=== PATIENT | male | born 1965 | race Caucasian/White ===

== ENCOUNTER 2019-03-25 12:30 | Emergency (ER) | payer SELFPAY ==
[~2019-03-25] VITALS: Ht 172.7 cm; Wt 74.8 kg
--- NOTE | 2019-03-25 12:50 | NUR ---
BAYRON ZHONG AT BEDSIDE FOR MSE.
[2019-03-25] MEDS: IV NORMAL SALINE 1000 ML BAG IV ONE (13:01)
[2019-03-25 13:14] LABS: CREATININE 1.1 mg/dL (0.6-1.3); POTASSIUM 4.1 mmol/L (3.5-5.1)
[2019-03-25 13:16] LABS: BASOPHILS % (AUTO) 0.3 % (0.0-2.0); EOSINOPHILS % (AUTO) 0.1 % (0.0-7.0); HEMOGLOBIN 14.3 g/dL (12.5-16.3); LYMPHOCYTES # (AUTO) 0.7 K/uL (20.0-40.0); LYMPHOCYTES % (AUTO) 6.3 % (20.5-51.5); MEAN CORPUSCULAR HEMOGLOBIN 31.1 uug (23.8-33.4); MEAN CORPUSCULAR HGB CONC 34 g/dL (32.5-36.3); MEAN CORPUSCULAR VOLUME 91.5 fL (73.0-96.2); MONOCYTES # (AUTO) 0.9 K/uL (2.0-10.0); MONOCYTES % (AUTO) 7.8 % (0.0-11.0); NEUTROPHILS # (AUTO) 9.4 K/uL (1.8-8.9); NEUTROPHILS % (AUTO) 85.5 % (38.5-71.5); PLATELET COUNT (AUTO) 294 K/uL (152-348); RED BLOOD CELL COUNT(AUTO) 4.59 MIL/uL (4.06-5.63)
[2019-03-25 13:20] LABS: BILIRUBIN,DIRECT 0.2 mg/dL (0.0-0.2); TOTAL PROTEIN, SERUM 7.8 g/dL (6.4-8.2)
[2019-03-25] MEDS ORDERED: IOHEXOL 300MG/ML 100 ML INFUS..BTL ONE (13:29)
[2019-03-25] MEDS ORDERED: IV NORMAL SALINE 250 ML IV ONE (13:29)
[2019-03-25] MEDS ORDERED: SWABABLE VALVE TRANSFER SET EA MC ONE (13:29)
[2019-03-25 16:00] VITALS: BP 116/82
--- NOTE | 2019-03-25 16:00 | NUR ---
Patient discharged to home in stable conditon. Written and verbal after care instructions given. Patient verbalizes understanding of instructions. ALL BELONGINGS W/ PT. PT SELF-AMBULATED W/O DIFFICULTY. 18G IV ACCESS IN LAC REMOVED PRIOR TO D/C - INNER CANNULA INTACT.
== END 2019-03-25 16:07 | disposition home or self-care (01) ==
LOC: ER 12:30
DX: K52.9 Noninfective gastroenteritis and colitis, unspecified (principal); R91.8 Other nonspecific abnormal finding of lung field
CPT/HCPCS: 36415; 74177; 80048; 80076; 83690; 85025; 86625; 87015; 87046; 87427; 87493; 87899; 89055; 96360; 99284; Q9967; A4663; J7030; J7050

== ENCOUNTER 2020-12-03 15:45 | Emergency (ER) | payer MEDICAID, OTHER ==
[~2020-12-03] VITALS: Ht 188 cm; Wt 79.4 kg
[2020-12-03] MEDS ORDERED: LIDOCAINE HCL 1% 20 ML VIAL IJ ONE (17:15)
[2020-12-03] MEDS ORDERED: LIDOCAINE HCL 1% 20 ML VIAL ONE (17:21)
--- NOTE | 2020-12-03 17:28 | NUR ---
PT WAS EVALUATED BY DR DESOUZA. I&D PROCEDURE WAS PERFORMED BY DR DESOUZA ON PT's LEFT INDEX FINGER. PT TOLERATED TO PROCEDURE WITHOUT COMPLICATIONS. PT WAS D/C'd TO HOME. D/C INSTRUCTIONS GIVEN TO THE PT BY DR DESOUZA.
[2020-12-03] MEDS ORDERED: HYDR-3972 PO (17:42)
[2020-12-03] MEDS ORDERED: AMOXICILLIN-CLAVUL 875-125MG TABLET PO ONE (17:45)
[2020-12-03] MEDS ORDERED: AMOX-430 PO (17:45)
[2020-12-03 17:56] VITALS: BP 132/79
[2020-12-03] MEDS ORDERED: AMOXICILLIN-CLAVUL 875-125MG TABLET ONE (17:59)
== END 2020-12-03 17:56 | disposition home or self-care (01) ==
LOC: ER 15:45
DX: L03.012 Cellulitis of left finger (principal); S61.23 Puncture wound without foreign body of finger without damage to nail; X58.XXXS Exposure to other specified factors, sequela
CPT/HCPCS: 26011; 99284; J3490; A4217; A4663

== ENCOUNTER 2020-12-10 13:27 | Emergency (ER) | payer OTHER ==
[~2020-12-10] VITALS: Ht 188 cm; Wt 81.6 kg
[~2020-12-10 13:27] MED LIST: AMOX-430 PO; HYDR-3972 PO
[2020-12-10] MEDS ORDERED: SULF1TAB48 PO (14:07)
[2020-12-10] MEDS ORDERED: SULFAMETH/TRIMETH 800/160 MG TABLET PO ONE (14:15)
[2020-12-10] MEDS ORDERED: SULFAMETH/TRIMETH 800/160 MG TABLET ONE (14:25)
--- NOTE | 2020-12-10 14:28 | NUR ---
Gave pt RX and d/c instructions, pt verbalized understanding.
== END 2020-12-10 17:40 | disposition home or self-care (01) ==
LOC: ER 13:29
DX: L03.012 Cellulitis of left finger (principal); Z72.0 Tobacco use
CPT/HCPCS: A4663

== ENCOUNTER 2022-09-04 10:35 | Emergency (ER) | payer OTHER ==
[~2022-09-04] VITALS: Ht 188 cm; Wt 79.4 kg
[~2022-09-04 10:35] MED LIST changes: +SULF1TAB48 PO
--- NOTE | 2022-09-04 11:03 | NUR ---
Pt seen by . Safety measures in place. Will continue to monitor.
--- NOTE | 2022-09-04 11:16 | NUR ---
Patient discharged to home in stable condition. Written and verbal after care instructions given. Patient verbalizes understanding of instructions. Stressed follow up or return to ER for worsening s/s.
[2022-09-04 11:17] VITALS: BP 131/82
== END 2022-09-04 11:19 | disposition home or self-care (01) ==
LOC: ER 10:35
DX: K40.90 Unilateral inguinal hernia, without obstruction or gangrene, not specified as recurrent (principal); Z90.49 Acquired absence of other specified parts of digestive tract; Z79.2 Long term (current) use of antibiotics; Z79.899 Other long term (current) drug therapy
CPT/HCPCS: A4663

== ENCOUNTER 2024-01-26 03:17 | Emergency (ER) | payer OTHER ==
[~2024-01-26] VITALS: Ht 188 cm; Wt 83.9 kg
[2024-01-26] MEDS ORDERED: ONDANSETRON 4 MG/2 ML VIAL ONE (03:50)
[2024-01-26] MEDS: ONDANSETRON 4 MG/2 ML VIAL IV ONE (03:53)
[2024-01-26] MEDS: IV NORMAL SALINE 1000 ML BAG IV ONE (03:53)
[2024-01-26 04:10] LABS: BASOPHILS % (AUTO) 0.3 % (0.0-2.0); EOSINOPHILS # (AUTO) 0.1 K/uL (0.0-0.7); EOSINOPHILS % (AUTO) 0.8 % (0.0-7.0); HEMATOCRIT 42.8 % (36.7-47.1); HEMOGLOBIN 14.5 g/dL (12.5-16.3); LYMPHOCYTES # (AUTO) 1.1 K/uL (0.8-4.8); LYMPHOCYTES % (AUTO) 12.3 % (20.5-51.5); MEAN CORPUSCULAR HEMOGLOBIN 31.1 uug (23.8-33.4); MEAN CORPUSCULAR HGB CONC 34 g/dL (32.5-36.3); MEAN CORPUSCULAR VOLUME 91.7 fL (73.0-96.2); MONOCYTES # (AUTO) 0.7 K/uL (0.1-1.30); MONOCYTES % (AUTO) 7.4 % (0.0-11.0); NEUTROPHILS # (AUTO) 7.3 K/uL (1.8-8.9); NEUTROPHILS % (AUTO) 79.2 % (38.5-71.5); PLATELET COUNT (AUTO) 327 K/uL (152-348); RED BLOOD CELL COUNT(AUTO) 4.67 MIL/uL (4.06-5.63); RED CELL DISTRIBUTION WIDTH 13.9 % (12.1-16.2); WHITE BLOOD COUNT (AUTO) 9.2 K/uL (3.6-10.2)
[2024-01-26 04:11] LABS: *BILIRUBIN,URIN NEGATIVE (NEGATIVE); *BLOOD, URINE NEGATIVE (NEGATIVE); *CLARITY,URINE CLEAR (CLEAR); *COLOR,URINE YELLOW (YELLOW); *KETONES,URINE NEGATIVE (NEGATIVE); *PROTEIN,URINE NEGATIVE (NEGATIVE); *UROBILINOGEN,URINE 0.2 E.U./dl (NORMAL); LEUKOCYTE ESTERASE ,URINE NEGATIVE (NEGATIVE); NITRITE, URINE NEGATIVE (NEGATIVE); PH,URINE 8.5 (5.0-8.0); UGLUCOSE NEGATIVE (NEGATIVE)
[2024-01-26 04:16] LABS: CALCIUM 9.4 mg/dL (8.5-10.1); CARBON DIOXIDE 32 mmol/L (21-32); CHLORIDE 104 mmol/L (98-107); CREATININE 0.9 mg/dL (0.6-1.3); GLUCOSE 112 mg/dL (74-106); POTASSIUM 4.3 mmol/L (3.5-5.1); SODIUM SERUM 142 mmol/L (136-145); UREA NITROGEN, BLOOD 22 mg/dL (7-18)
[2024-01-26 04:25] LABS: ALANINE AMINOTRANSFERASE 24 U/L (16-63); ALBUMIN 3.7 g/dL (3.4-5.0); ALKALINE PHOSPHATASE 66 U/L (50-136); ASPARTATE AMINOTRANSFERASE 20 U/L (15-37); BILIRUBIN,DIRECT 0.1 mg/dL (0.0-0.2); BILIRUBIN,TOTAL 0.5 mg/dL (0.2-1.0); TOTAL PROTEIN, SERUM 7.5 g/dL (6.4-8.2)
[2024-01-26] MEDS ORDERED: diphenhydrAMINE 50 MG/1 ML VIAL ONE (04:46)
[2024-01-26] MEDS ORDERED: METOCLOPRAMIDE HCL 10 MG/2 ML VIAL ONE (04:46)
[2024-01-26] MEDS: METOCLOPRAMIDE HCL 10 MG/2 ML VIAL IV ONE (04:57)
[2024-01-26] MEDS: diphenhydrAMINE 50 MG/1 ML VIAL IV ONE (04:57)
[2024-01-26] MEDS ORDERED: METO5TAB87 PO (06:26)
[2024-01-26 06:34] VITALS: BP 132/78; O2SAT 97
== END 2024-01-26 06:35 | disposition home or self-care (01) ==
LOC: ER 03:20
DX: R11.2 Nausea with vomiting, unspecified (principal); Z79.899 Other long term (current) drug therapy; Z90.49 Acquired absence of other specified parts of digestive tract; Z59.00 Homelessness unspecified
CPT/HCPCS: 99284; 96374; 96361; 96375; 80076; 80048; 81003; 85025; 84484 ×2; 36415; 93005; J1200; J2765; J2405; J7040; A4606; A4663